=== PATIENT | female | born 1980 | race Hispanic/Latino ===

== ENCOUNTER → 2017-02-28 | Outpatient (CLI) | payer BC, OTHER, SELFPAY ==
--- NOTE | 2017-02-28 16:04 | MRI ---
EXAM DESCRIPTION: Lumbar Spine w/o Contrast CLINICAL HISTORY: PAIN COMPARISON: None Available. TECHNIQUE: MRI of the lumbar spine is performed according to our usual protocol with axial and sagittal multi sequence imaging. FINDINGS: Lumbar spine is normally aligned with modest disc desiccation of the lower four disc spaces but preservation of disc and vertebral height without marrow edema or vertebral collapse. The retroperitoneal and paraspinous structures are unremarkable. The conus is positioned at the thoracolumbar junction and no intradural or intramedullary abnormalities are noted. Spinal canal is adequate throughout without significant stenosis. L1-2: the disc is well hydrated. There is no loss of height. There is no bulging. The facets are unremarkable with no significant hypertrophy. There is no stenosis or impingement. L2-3: Mild disc desiccation and mild symmetric annular prominence with adequate canal and neural foramina. L3-4: Mild disc desiccation and annular bulge that is symmetric with adequate canal and neural foramina and normal facet joints L4-5: Disc desiccation and symmetric annular bulge with mild fissuring of the posterior annulus inferiorly without lateralizing herniation or stenosis or neural compression. Adequate neural foramina. L5-S1: Disc desiccation with mild annular bulge and minimal central disc protrusion abutting but not significantly indenting the thecal sac. Adequate canal and neural foramina. IMPRESSION: 1. Multilevel disc desiccation from L2-3 through L5-S1 with mild annular bulges at L2-3, L3-4 and L4-5. 2. Mild fissuring of the posterior annulus in the midline at L4-5 foot without focal disc bulge or neural compression. 3. Annular bulge and very minimal central disc protrusion at L5-S1 abutting but not significantly compressing the thecal sac in the midline. No significant neural compression noted. Electronically signed by: Jeremiah Shepard MD 02/28/2017 4:03 PM CDT
== END ==
LOC: MRI 08:52
PROVIDERS: ATTEND Family Medicine
DX: M54.16 Radiculopathy, lumbar region (principal); M53.86 Other specified dorsopathies, lumbar region

== ENCOUNTER → 2017-11-03 | Outpatient (CLI) | payer BC ==
--- NOTE | 2017-11-04 11:31 | MRI ---
EXAM DESCRIPTION: Cervical Spine: MRI. CLINICAL HISTORY: RADICULOPATHY COMPARISON: None. TECHNIQUE: Multiplanar MRI, multiple sequences, non-contrast high-field cervical spine. FINDINGS: Bright T2 and inversion recovery signal in the central cord canal beginning at the C3-4 disc space level extending inferiorly to the C5-6 disc space level. No cord compression. No significant cord widening. Minimal disc desiccation C3-4 with minimal lateral bulging but no impingement of the cord or nerve roots. Disc space maintained. Canal and neural foramina are patent. Facets are negative. Minimal disc desiccation C4-5. Disc space maintained. Trace posterior midline bulging not abutting the cord. Bilateral facets are unremarkable. Canal and bilateral neural foramina are patent. Minimal disc desiccation C5-6. Disc space maintained. Trace posterior midline bulge not abutting the cord. Bilateral facets are unremarkable. Canal and bilateral neural foramina are patent. Disc desiccation C6-7. Disc space maintained. Posterior trace midline bulge not abutting the cord. Canal and bilateral neural foramina are patent. Bilateral facets are unremarkable. Normal signal in the remaining discs with no bulging. Disc spaces preserved. Canal and neural foramina are patent. Facets are unremarkable. No cord compression or cord edema. Spine is minimally kyphotic C2-C4. Atlantoaxial joint is unremarkable. Base of the cerebellar tonsils is at the level of the foramen magnum. Paravertebral soft tissues unremarkable. No scoliosis. Vertebral bodies are not compressed at any level. Normal marrow signal in the remaining vertebral bodies and the posterior elements. IMPRESSION: 1. 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 No cord widening or compression. No cord edema. Consider follow-up MRI scan with gadolinium IV contrast to rule out intradural mass or tumor. 2. Multiple discs with minimal desiccation and mild or trace bulging. Disc spaces maintained. No canal or neural foraminal stenosis. Facets are unremarkable. No bony abnormalities in the spine. Electronically signed by: Manuel Carroll MD 11/04/2017 11:30 AM CDT
== END ==
LOC: MRI 13:39
PROVIDERS: ATTEND Physical Medicine & Rehabilitation
DX: M54.12 Radiculopathy, cervical region (principal); G95.0 Syringomyelia and syringobulbia

== ENCOUNTER → 2017-11-11 | Outpatient (CLI) | payer BC ==
--- NOTE | 2017-11-11 16:23 | MRI ---
EXAM DESCRIPTION: Cervical Spine w/Contrast: MRI. CLINICAL HISTORY: M54.12 COMPARISON: MRI scan cervical spine 11/03/2017. TECHNIQUE: sagittal and axial T1 weighted sequences, with gadolinium IV contrast High-field. FINDINGS: The syrinx is visible on the T1 axial sequences beginning at the C3-4 disc space level to the C4-5 disc space level. No abnormal enhancement in the syrinx. No abnormal enhancement in the cervical cord. No abnormal enhancement in the intradural extramedullary space or the extradural space. Again noted is no cord compression. No abnormal contrast enhancement in the disc spaces are the paravertebral soft tissues. IMPRESSION: No enhancing mass in the cord or in the extradural space. No abnormal enhancement around, or in, the cord syrinx. No cord compression. Electronically signed by: Manuel Carroll MD 11/11/2017 4:20 PM CDT
== END ==
LOC: LAB.O 09:34
PROVIDERS: ATTEND Physician Assistant Medical
DX: M54.12 Radiculopathy, cervical region (principal); M51.36 Other intervertebral disc degeneration, lumbar region

== ENCOUNTER → 2018-02-13 | Outpatient (CLI) | payer BC | LOC: YCFC.O 16:55 | PROVIDERS: ATTEND Nurse Practitioner Family | DX: R30.0 Dysuria (principal); R10.9 Unspecified abdominal pain ==

== ENCOUNTER → 2018-05-19 | Outpatient (CLI) | payer BC, OTHER ==
--- NOTE | 2018-05-21 08:55 | MAM ---
EXAM DESCRIPTION: 3D Screening BILATERAL : Digital Mammography. CLINICAL HISTORY: 37 years Female SCREEN . No complaints. No personal history or family history of breast cancer. Childbirth. Postmenopausal. No HRT. Lifetime risk of developing breast cancer (Tyrer-Cuzick model)(%): 8 COMPARISON: Baseline study at this facility.. No prior reports available. TECHNIQUE: Bilateral CC and MLO projection full-field images, Digital tomosynthesis mammographic technique. Bilateral digital 2-D full-field MLO images. CAD not utilized. FINDINGS: The breast parenchymal density pattern is: Heterogeneously dense breast tissue, which may obscure small masses. No skin thickening or nipple retraction. Scattered solitary microcalcifications. Focal asymmetry at the 1200 clock position of the right breast, 3 cm from the nipple No new focal, stellate mass or density, focal asymmetry , and no suspicious microcalcifications left breast. IMPRESSION: BI-RADS CATEGORY: 0 - INCOMPLETE- Need additional imaging evaluation. FOLLOW-UP: Recall for additional imaging: Full-field right breast tomosynthesis and targeted right breast ultrasound.. Written communication concerning the IMPRESSION and Follow-up, will be mailed to the patient and referring health care provider. Electronically signed by: Manuel Carroll MD 05/21/2018 8:54 AM CDT
== END ==
LOC: MAMMO 14:27
PROVIDERS: ATTEND Family Medicine
DX: Z12.31 Encounter for screening mammogram for malignant neoplasm of breast (principal)

== ENCOUNTER → 2018-06-04 | Outpatient (CLI) | payer OTHER ==
--- NOTE | 2018-06-05 16:22 | US ---
EXAM DESCRIPTION: Breast,Right: Ultrasound CLINICAL HISTORY: 37 yearsFemaleABNORMAL MAMMO. Focal asymmetry of the anterior upper right breast. COMPARISON: Digital diagnostic tomosynthesis right breast on this visit. TECHNIQUE: Transcutaneous scanning of the right breast utilizing craig-scale and Doppler modes. Scanning performed by the bass fisher and Dr. Carroll. FINDINGS: Scanning of the upper-outer quadrant of the right breast. Emphasis on the 10:00 position 6 cm from the nipple. Heterogeneous mixture of fibroglandular and fatty echotexture. Anechoic mass with well-defined echogenic margins at the 10:30 clock position 1 cm from the nipple. Long axis is 6 mm with parallel orientation and posterior enhancement features. Nonvascular. Consistent with a cyst. No distinct solid mass. No parenchymal edema or large calcifications. No overlying skin changes. Normal vascularity. IMPRESSION: 1. Bi-Rads Category 2: Benign. 2. Please refer to digital diagnostic tomosynthesis examination of the right breast and report on this visit. The FINDINGS and the FOLLOW-UP plan were reviewed in person with the patient after the examination. Written communication explaining the IMPRESSION and FOLLOW-UP will be mailed to the patient and referring care provider. Electronically signed by: Manuel Carroll MD 06/05/2018 4:20 PM CDT
--- NOTE | 2018-06-08 09:49 | MAM ---
EXAM DESCRIPTION: 3D Diagnostic, Right: Digital Mammography CLINICAL HISTORY: 37 [id number] follow-up for focal asymmetry right breast. COMPARISON: Bilateral screening digital breast tomosynthesis 05/27/2018.. TECHNIQUE: Right breast LM projection full-field images, digital mammographic tomosynthesis technique. Digital spot compression, MLO and CC projections of the region of interest. CAD not utilized. FINDINGS: Right breast parenchymal density pattern is: Heterogeneously dense breast tissue, which may obscure small masses. No skin thickening or nipple retraction focal asymmetry again noted at the 1200 clock position. Ultrasound: Scanning of the upper-outer quadrant of the right breast. Emphasis on the 10:00 position 6 cm from the nipple. Heterogeneous mixture of fibroglandular and fatty echotexture. Anechoic mass with well-defined echogenic margins at the 10:30 clock position 1 cm from the nipple. Long axis is 6 mm with parallel orientation and posterior enhancement features. Nonvascular. Consistent with a cyst. No distinct solid mass. No parenchymal edema or large calcifications. No overlying skin changes. Normal vascularity. IMPRESSION: Benign exam. BIRAD CATEGORY: 2 BENIGN FINDINGS. RECOMMENDATIONS: FOLLOW UP: Return to routine digital bilateral screening, one year interval from May 2018. Written communication explaining the IMPRESSION and follow-up, will be mailed to the patient and referring health care provider. According to the [employer], yearly mammograms are recommended starting at age 40 and continuing as long as a woman is in good health. Any breast change noted on a breast self-exam should be reported promptly to the patient's healthcare provider. Breast MRI is recommended for women with an approximately 20-25% or greater lifetime risk of breast cancer, including women with a strong family history of breast or ovarian cancer and women who have been treated for Hodgkin's disease. A negative mammographic report should not delay tissue diagnosis in patients with significant clinical history or physical findings. Extremely dense breast tissue limits the sensitivity of digital mammography. Electronically signed by: Manuel Carroll MD 06/08/2018 9:48 AM CDT
== END ==
LOC: MAMMO 14:15
PROVIDERS: ATTEND Family Medicine
DX: R92.8 Other abnormal and inconclusive findings on diagnostic imaging of breast (principal)
CPT/HCPCS: 76641; 77065; G0279

== ENCOUNTER → 2019-02-23 | Outpatient (CLI) | payer OTHER ==
--- NOTE | 2019-02-23 11:36 | US ---
EXAM DESCRIPTION: Abdomen,Complete: Ultrasound. CLINICAL HISTORY: ABD PAIN COMPARISON: None Available. TECHNIQUE: Transabdominal scannin-dimensional and Doppler modes. FINDINGS: Gallbladder: Normal size with no intraluminal stones or sludge. Normal wall thickness 1.9 mm with no surrounding fluid. Nontender with transducer pressure. Common bile duct: 4.0 mm normal caliber. Liver: Mildly echogenic liver. Long axis right lobe 14.9 cm. Normal hepatopedal portal vein flow and normal caliber 1 cm. Ducts not dilated. Smooth capsule with no ascites. Pancreas: Normal echogenicity of the included segment and duct not visualized.. Abdominal aorta: Normal caliber proximal and mid segment. Distal aorta and bifurcation obscured by intestinal gas. IVC: visualized; normal caliber. Spleen normal echogenicity; long axis measurement is 7.4 cm. Right kidney: 9.7 cm long axis. Normal cortical thickness and echogenicity. Minimal lobulation of the capsule. No hydronephrosis, no echogenic stones, no perirenal fluid. Left kidney: 10.1 cm long axis. Normal cortical thickness and echogenicity. Minimal lobulation of the capsule. No hydronephrosis, no echogenic stones, no perirenal fluid. IMPRESSION: 1. Minimal steatosis of the liver with normal size. Normal vascular flow and ducts. Smooth capsule with no ascites. 2. Remainder of the upper abdominal organs are unremarkable. Distal abdominal aorta obscured by intestinal gas. Electronically signed by: Manuel Carroll MD 02/23/2019 11:34 AM CDT
== END ==
LOC: US 07:57
PROVIDERS: ATTEND Family Medicine
DX: K76.0 Fatty (change of) liver, not elsewhere classified (principal)

== ENCOUNTER → 2020-05-24 | Outpatient (CLI) | payer BC | LOC: GMAM 14:44 | PROVIDERS: ATTEND Family Medicine | DX: Z00.00 Encounter for general adult medical examination without abnormal findings (principal) ==

== ENCOUNTER → 2020-08-23 | Outpatient (CLI) | payer BC ==
--- NOTE | 2020-08-24 15:11 | MAM ---
EXAM DESCRIPTION: 3D Screening BILATERAL : Digital Mammography. CLINICAL HISTORY: 39 years Female SCREENING . No complaints and no family history of breast cancer. Menarche age unknown. Childbirth age 16. Perimenopausal. No HRT.. Lifetime risk of developing breast cancer (Tyrer-Cuzick model)(%): 7.8. COMPARISON: Bilateral screening digital breast tomosynthesis and diagnostic tomosynthesis bilateral May 2018 TECHNIQUE: Bilateral CC and MLO projection full-field images, digital tomosynthesis mammographic technique. Bilateral digital 2-D full-field MLO images. CAD available for 2-D images. FINDINGS: The breast parenchymal density pattern is: Heterogeneously dense breast tissue, which may obscure small masses. No skin thickening or nipple retraction No new focal, stellate mass or density, focal asymmetry , and no suspicious microcalcifications bilaterally. Stable mammograms compared to prior study. IMPRESSION: No suspicious or significant imaging findings. BI-RADS CATEGORY: 1 - NEGATIVE RECOMMENDATIONS: FOLLOW UP: Routine digital bilateral screening, one year interval from August 2020. Written communication explaining the findings and follow-up, will be mailed to the patient and referring health care provider. According to the [employer], yearly mammograms are recommended starting at age 40 and continuing as long as a woman is in good health. Any breast change noted on a breast self-exam should be reported promptly to the patient's healthcare provider. Breast MRI is recommended for women with an approximately 20-25% or greater lifetime risk of breast cancer, including women with a strong family history of breast or ovarian cancer and women who have been treated for Hodgkin's disease. A negative mammographic report should not delay tissue diagnosis in patients with significant clinical history or physical findings. Extremely dense breast tissue limits the sensitivity of digital mammography. Electronically signed by: Manuel Carroll MD 08/24/2020 3:09 PM [facility]
== END ==
LOC: MAMMO 15:24
PROVIDERS: ATTEND Family Medicine
DX: Z12.31 Encounter for screening mammogram for malignant neoplasm of breast (principal)

== ENCOUNTER → 2020-10-12 | Outpatient (CLI) | payer BC | LOC: GMALS 16:45 | PROVIDERS: ATTEND Nurse Practitioner Acute Care | DX: E34.9 Endocrine disorder, unspecified (principal) ==